=== PATIENT | male | born 1975 | race Caucasian/White ===

== ENCOUNTER 2024-01-04 08:47 | Day surgery (SDC) | payer MEDICAID, OTHER ==
[~2024-01-04] VITALS: Ht 167.6 cm; Wt 113.4 kg
[~2024-01-04 08:47] MED LIST: SODIUM CHLORIDE 0.9% 1,000 ML ONE
[2024-01-04] MEDS ORDERED: LIDOCAINE/PF 2% 5 ML VIAL IM ONE ×2 (08:48→12:00)
[2024-01-04] MEDS ORDERED: PROPOFOL 1% 20 ML VIAL IVP ONE ×2 (08:48→12:00)
[2024-01-04] MEDS: SODIUM CHLORIDE 0.9% 1,000 ML IV ONE (09:25)
[2024-01-04] MEDS ORDERED: CHOL500045 PO (09:37)
[2024-01-04] MEDS ORDERED: METF-1211 PO (09:37)
[2024-01-04] MEDS ORDERED: LISI10TA24 PO (09:37)
[2024-01-04] MEDS ORDERED: ATOR10TA69 PO (09:37)
[2024-01-04 09:46] LABS: GLUCOMETER DEV NAME(LOC) SDS.; GLUCOSE,POINT OF CARE 112 MG/DL (70-110)
== END 2024-01-04 11:40 | disposition home or self-care (01) ==
LOC: SURGERY 08:47
PROVIDERS: ATTEND Internal Medicine Gastroenterology
DX: K62.5 Hemorrhage of anus and rectum (principal); K57.30 Diverticulosis of large intestine without perforation or abscess without bleeding; K64.9 Unspecified hemorrhoids; E11.9 Type 2 diabetes mellitus without complications; I10 Essential (primary) hypertension; Z79.899 Other long term (current) drug therapy; E66.01 Morbid (severe) obesity due to excess calories; Z68.41 Body mass index [BMI] 40.0-44.9, adult; E78.00 Pure hypercholesterolemia, unspecified; D64.9 Anemia, unspecified
CPT/HCPCS: 45378; 82962; J2704; J3490; J7030